=== PATIENT | female | born 1975 | race Caucasian/White ===

== ENCOUNTER 2024-12-13 17:19 | Emergency (ER) | payer OTHER ==
[~2024-12-13] VITALS: Ht 154.9 cm; Wt 82.0 kg
[2024-12-13 17:25] VITALS: O2SAT 98
[2024-12-13 17:42] VITALS: BP 173/110; PULSE 100; RESP 16; TEMP 37.1; O2SAT 100
== END 2024-12-13 20:00 | disposition left against medical advice (07) ==
LOC: ER 17:19
DX: M79.672 Pain in left foot (principal); Z53.21 Procedure and treatment not carried out due to patient leaving prior to being seen by health care provider